=== PATIENT | male | born 1980 | race Hispanic/Latino ===

== ENCOUNTER 2020-12-22 05:33 | Day surgery (SDC) | payer OTHER ==
[2020-12-15 15:22] LABS: BASOPHILS % (AUTO) 0.8 % (0.0-5.0); EOSINOPHILS % (AUTO) 15.4 % (0.0-8.0); HEMATOCRIT 46.7 % (42-54); LYMPHOCYTES % (AUTO) 23.5 % (21.0-51.0); MEAN CORPUSCULAR HGB CONC 32.5 g/dL (32.0-36.0); MONOCYTES % (AUTO) 7.7 % (3.0-13.0); NEUTROPHILS % (AUTO) 52.3 % (40.0-77.0); PLATELET COUNT (AUTO) 337 K/uL (130-400); RED BLOOD CELL COUNT(AUTO) 5.43 MIL/uL (4.50-6.20); RED CELL DISTRIBUTION WIDTH 13.3 % (11.0-15.5); WHITE BLOOD COUNT (AUTO) 7.1 K/uL (4.8-10.8)
[2020-12-15 15:32] LABS: CREATININE 0.8 mg/dL (0.5-1.5); POTASSIUM 3.9 mmol/L (3.5-5.1)
[2020-12-22] VITALS (13 sets, daily range): BP systolic 111–126; BP diastolic 70–79
[~2020-12-22] VITALS: Ht 167.6 cm; Wt 128.1 kg
[2020-12-22] MEDS: CEFAZOLIN SODIUM 1 GM VIAL IVP SCH ×2 (05:00→07:50)
[2020-12-22] MEDS ORDERED: LACTATED RINGERS 1000ML 1,000 ML IV ONE (06:18)
[2020-12-22] MEDS ORDERED: LIDOCAINE PF 2% 5ML ABBOJECT ONE (07:18)
[2020-12-22] MEDS ORDERED: PROPOFOL 10 MG/ML 20ML VIAL IV ONE (07:18)
[2020-12-22] MEDS ORDERED: SUCCINYLCHOLINE CHLORIDE 20 MG/ML 10 ML VIAL ONE (07:18)
[2020-12-22] MEDS ORDERED: MIDAZOLAM HCL 1 MG/ML 2ML VIAL ONE (07:18)
[2020-12-22] MEDS ORDERED: FENTANYL CITRATE PF 50 MCG/1 ML 2ML VIAL ONE (07:19)
[2020-12-22] MEDS ORDERED: ROCURONIUM 10MG/1ML SYR 10 MG/ML ML ONE (07:19)
[2020-12-22] MEDS ORDERED: NEOSTIGMINE 5MG/5ML SYR IV ONE (07:22)
[2020-12-22] MEDS ORDERED: DEXAMETHASONE SOD PHOSPHATE 4 MG/ML 1ML VIAL ONE (07:22)
[2020-12-22] MEDS ORDERED: ONDANSETRON HCL 4 MG/2 ML VIAL ONE (07:22)
[2020-12-22] MEDS ORDERED: GLYCOPYRROLATE 1 MG/5 ML SYRINGE ONE (07:22)
[2020-12-22] MEDS ORDERED: DEXAMETHASONE SOD PHOSPHATE 10MG/ML 1ML VIAL ONE (07:23)
[2020-12-22] MEDS ORDERED: BUPIVACAINE/EPI/PF 0.5% 30ML VIAL IJ ONE (07:44)
[2020-12-22] MEDS ORDERED: KETOROLAC TROMETHAMINE 30MG/ML ONE (08:50)
[2020-12-22] MEDS ORDERED: MEPERIDINE-PF 25 MG/ML SYG ONE ×2 (09:04→09:14)
== END 2020-12-22 10:07 | disposition home or self-care (01) ==
LOC: DAH 05:33
PROVIDERS: ATTEND Orthopaedic Surgery
DX: S83.272A Complex tear of lateral meniscus, current injury, left knee, initial encounter (principal); K21.9 Gastro-esophageal reflux disease without esophagitis; G47.30 Sleep apnea, unspecified; Z98.890 Other specified postprocedural states; E66.9 Obesity, unspecified; Z99.89 Dependence on other enabling machines and devices; M22.42 Chondromalacia patellae, left knee; M17.12 Unilateral primary osteoarthritis, left knee; Z20.828 Contact with and (suspected) exposure to other viral communicable diseases; X58.XXXA Exposure to other specified factors, initial encounter; Y93.89 Activity, other specified; Y92.89 Other specified places as the place of occurrence of the external cause; Y99.8 Other external cause status
CPT/HCPCS: 29879; 29881; 36415; 80048; 85025; A4215; A4221; A4222; A4223; A4606; A4649 ×3; A4663; A4930; A6223; A6260; C9803; J0330; J0690; J1100 ×2; J1885; J2001; J2175 ×2; J2250; J2405; J2704; J2710; J3010; J3490 ×2; J7120; U0003